=== PATIENT | female | born 1935 | race Caucasian/White ===

== ENCOUNTER 2016-12-15 10:15 | Inpatient (IN) | payer MEDICARE ==
[~2016-12-15] VITALS: Ht 167.6 cm; Wt 74.8 kg
[2016-12-15 10:31] LABS: GLUCOSE,POINT OF CARE 129 MG/DL (70-110)
[2016-12-15] MEDS ORDERED: DIABETES MED PO (10:31)
[2016-12-15] MEDS ORDERED: HTN MED PO (10:31)
[2016-12-15 11:01] LABS: BASOPHILS % (AUTO) 0.6 % (0.0-2.0); HEMATOCRIT 39.4 % (36-46); HEMOGLOBIN 12.6 g/dL (12.0-16.0); LYMPHOCYTES # (AUTO) 1.8 K/uL (1.0-4.8); LYMPHOCYTES % (AUTO) 21.6 % (22.0-44.0); MEAN CORPUSCULAR HEMOGLOBIN 26.6 pg (26.0-34.0); MEAN CORPUSCULAR HGB CONC 32.1 G/dL (31.0-37.0); MEAN CORPUSCULAR VOLUME 83 fL (80-100); MONOCYTES # (AUTO) 0.7 K/uL (0.1-1.0); MONOCYTES % (AUTO) 8.7 % (2.0-9.0); NEUTROPHILS # (AUTO) 5.3 K/uL (1.8-7.7); NEUTROPHILS % (AUTO) 65.1 % (40.0-70.0); PLATELET COUNT (AUTO) 196 K/uL (150-450); RED BLOOD CELL COUNT(AUTO) 4.75 MIL/uL (4.00-5.20); RED CELL DISTRIBUTION WIDTH 16.9 % (11.5-14.5); WHITE BLOOD COUNT (AUTO) 8.2 K/uL (4.5-11.0)
[2016-12-15 11:08] LABS: ANION GAP 10 mmol/L (8-16); CALCIUM, TOTAL 10.6 mg/dL (8.8-10.5); CARBON DIOXIDE 28 mmol/L (22-29); CHLORIDE 108 mmol/L (98-107); CREATININE 0.83 mg/dL (0.60-1.30); GLOMERULAR FILTR. RATE CALC > 60 mL/min (>60); POTASSIUM 4.2 mmol/L (3.5-5.1); SODIUM SERUM 146 mmol/L (136-145); UREA NITROGEN, BLOOD 15 mg/dL (7-18)
[2016-12-15 11:10] LABS: PROTHROMBIN TIME 10.7 SEC (9.4-11.6)
[2016-12-15 11:15] LABS: ALANINE AMINOTRANSFERASE 46 U/L (12-78); ALBUMIN 3.6 g/dL (3.4-5.0); ASPARTATE AMINOTRANSFERASE 28 U/L (15-37); BILIRUBIN,TOTAL 0.6 mg/dL (0.1-1.0); CREATINE KINASE, TOTAL 49 U/L (26-192); TOTAL PROTEIN, SERUM 7.2 g/dL (6.4-8.2)
[2016-12-15 11:16] LABS: AMMONIA 21 umol/L (11-32); TROPONIN I < 0.02 ng/mL (0.00-0.05)
[2016-12-15 12:13] LABS: APPEARANCE,URINE CLOUDY (CLEAR); GLUCOSE, URINE (UA) NEGATIVE (NEGATIVE); KETONES,URINE NEGATIVE (NEGATIVE); LEUKOCYTE ESTERASE ,URINE NEGATIVE (NEGATIVE); OCCULT BLOOD,URINE NEGATIVE (NEGATIVE); PH,URINE 5.5 (5.0-8.0); PROTEIN,URINE POS 1+ (NEGATIVE)
[2016-12-15 12:14] LABS: ADD UA MICROSCOPIC YES
[2016-12-15 12:20] LABS: RBC,URINE None Seen /HPF (0-2); SQUAMOUS EPITHELIAL CELL,UR Few /LPF (None Seen)
[2016-12-15] MEDS ORDERED: ONDANSETRON HCL 4 MG/2 ML VIAL IVP PRN (15:15)
[2016-12-15] MEDS ORDERED: ACETAMINOPHEN 325 MG TABLET PO PRN (15:15)
[2016-12-15] MEDS ORDERED: ZOLPIDEM TARTRATE 5 MG TABLET PO PRN (15:15)
[2016-12-15] MEDS ORDERED: SODIUM CHLORIDE 0.9% 1,000 ML IV ONE (16:15)
[2016-12-15] MEDS: HEPARIN SODIUM,PORCINE 5,000 UNITS/ML VIAL SQ SCH (16:34)
[2016-12-15] MEDS ORDERED: DEXTROSE 50%-WATER 25 GM/50 ML SYRINGE IVP PRN (16:45)
[2016-12-15] MEDS ORDERED: METOPROLOL TARTRATE 50 MG TABLET PO ONE (16:45)
[2016-12-15] MEDS: POTASSIUM CHL 20 MEQ/0.45% NS 1,000 ML IV SCH (17:06)
[2016-12-15 17:16] LABS: GLUCOSE,POINT OF CARE 140 MG/DL (70-110)
[2016-12-15 18:53] VITALS: BP 136/66
[2016-12-16] VITALS (7 sets, daily range): BP systolic 119–188; BP diastolic 69–107
[2016-12-16] MEDS: HEPARIN SODIUM,PORCINE 5,000 UNITS/ML VIAL SQ SCH ×4 (00:51→22:52)
[2016-12-16 02:01] LABS: GLUCOSE,POINT OF CARE 129 MG/DL (70-110)
[2016-12-16 06:16] LABS: GLUCOSE,POINT OF CARE 132 MG/DL (70-110)
[2016-12-16 08:30] LABS: BASOPHILS % (AUTO) 0.5 % (0.0-2.0); EOSINOPHILS % (AUTO) 4.6 % (1.0-6.0); HEMATOCRIT 39.1 % (36-46); HEMOGLOBIN 12.3 g/dL (12.0-16.0); LYMPHOCYTES # (AUTO) 1.8 K/uL (1.0-4.8); LYMPHOCYTES % (AUTO) 28.8 % (22.0-44.0); MEAN CORPUSCULAR HEMOGLOBIN 26.4 pg (26.0-34.0); MEAN CORPUSCULAR HGB CONC 31.4 G/dL (31.0-37.0); MEAN CORPUSCULAR VOLUME 84 fL (80-100); MONOCYTES # (AUTO) 0.5 K/uL (0.1-1.0); MONOCYTES % (AUTO) 8.6 % (2.0-9.0); NEUTROPHILS # (AUTO) 3.6 K/uL (1.8-7.7); NEUTROPHILS % (AUTO) 57.5 % (40.0-70.0); PLATELET COUNT (AUTO) 206 K/uL (150-450); RED BLOOD CELL COUNT(AUTO) 4.65 MIL/uL (4.00-5.20); RED CELL DISTRIBUTION WIDTH 17.5 % (11.5-14.5); WHITE BLOOD COUNT (AUTO) 6.2 K/uL (4.5-11.0)
[2016-12-16] MEDS: METOPROLOL TARTRATE 25 MG TABLET PO SCH ×2 (08:38→19:56)
[2016-12-16] MEDS: PANTOPRAZOLE SODIUM 40 MG DR TABLET PO SCH (08:38)
[2016-12-16] MEDS: POTASSIUM CHL 20 MEQ/0.45% NS 1,000 ML IV SCH ×2 (08:39→19:53)
[2016-12-16 08:41] LABS: HEMOGLOBIN A1C 6.6 % (4.5-6.2)
[2016-12-16 08:50] LABS: ALANINE AMINOTRANSFERASE 44 U/L (12-78); ALBUMIN 3.5 g/dL (3.4-5.0); ANION GAP 8 mmol/L (8-16); ASPARTATE AMINOTRANSFERASE 27 U/L (15-37); BILIRUBIN,TOTAL 0.6 mg/dL (0.1-1.0); CALCIUM, TOTAL 10.8 mg/dL (8.8-10.5); CARBON DIOXIDE 28 mmol/L (22-29); CHLORIDE 107 mmol/L (98-107); CHOL/HDL RATIO 2.3 (3.9-5.7); CREATININE 0.69 mg/dL (0.60-1.30); GLOMERULAR FILTR. RATE CALC > 60 mL/min (>60); SODIUM SERUM 143 mmol/L (136-145); THYROID STIMULATING HORMONE 1.98 uIU/mL (0.36-3.74); TOTAL PROTEIN, SERUM 6.9 g/dL (6.4-8.2); UREA NITROGEN, BLOOD 12 mg/dL (7-18)
[2016-12-16] MEDS: INSULIN ASPART 100 UNITS/ML SQ PRN ×3 (11:49→21:05)
[2016-12-16 12:46] LABS: RBC MORPHOLOGY COMMENT ABNORMAL RBC MORPH
[2016-12-16 17:16] LABS: GLUCOSE,POINT OF CARE 161 MG/DL (70-110)
[2016-12-16 17:16] LABS: GLUCOSE,POINT OF CARE 171 MG/DL (70-110)
[2016-12-16 21:31] LABS: GLUCOSE COMMENT 1 Received Meds; GLUCOSE,POINT OF CARE 185 MG/DL (70-110)
[2016-12-16] MEDS: OxyCODONE HCL/ACETAMINOPHEN 5-325 MG TABLET PO PRN (22:52)
[2016-12-17 04:36] VITALS: BP 166/79
[2016-12-17] MEDS: INSULIN ASPART 100 UNITS/ML SQ PRN ×4 (05:14→20:11)
[2016-12-17 05:40] LABS: GLUCOSE COMMENT 1 Received Meds; GLUCOSE,POINT OF CARE 157 MG/DL (70-110)
[2016-12-17] MEDS: DULoxetine HCL 20 MG CAPSULE PO SCH (08:20)
[2016-12-17] MEDS: PANTOPRAZOLE SODIUM 40 MG DR TABLET PO SCH (08:20)
[2016-12-17] MEDS: HEPARIN SODIUM,PORCINE 5,000 UNITS/ML VIAL SQ SCH ×3 (08:20→23:23)
[2016-12-17] MEDS: METOPROLOL TARTRATE 25 MG TABLET PO SCH ×2 (08:21→19:36)
[2016-12-17] MEDS: POTASSIUM CHL 20 MEQ/0.45% NS 1,000 ML IV SCH ×2 (08:27→19:35)
[2016-12-17] MEDS: OxyCODONE HCL/ACETAMINOPHEN 5-325 MG TABLET PO PRN ×2 (08:38→13:08)
[2016-12-17 11:22] VITALS: BP 190/91
[2016-12-17 11:57] LABS: GLUCOSE,POINT OF CARE 203 MG/DL (70-110)
[2016-12-17] MEDS: CloNIDine HCL 0.1 MG TABLET PO PRN ×2 (13:00→17:40)
[2016-12-17] MEDS: ALPRAZolam 0.5 MG TABLET PO SCH ×2 (14:11→19:37)
[2016-12-17 14:19] VITALS: BP 167/93
[2016-12-17 15:51] VITALS: BP 184/109
[2016-12-17 18:09] VITALS: BP 161/82
[2016-12-17 18:11] LABS: GLUCOSE COMMENT 1 Received Meds; GLUCOSE,POINT OF CARE 183 MG/DL (70-110)
[2016-12-17 19:23] VITALS: BP 153/77
[2016-12-17 21:31] LABS: GLUCOSE COMMENT 1 Received Meds; GLUCOSE,POINT OF CARE 165 MG/DL (70-110)
[2016-12-18] VITALS: BP 150/67
[2016-12-18 04:23] VITALS: BP 135/75
[2016-12-18] MEDS: INSULIN ASPART 100 UNITS/ML SQ PRN ×2 (05:20→11:29)
[2016-12-18 08:36] VITALS: BP 162/79
[2016-12-18] MEDS: DULoxetine HCL 20 MG CAPSULE PO SCH (08:36)
[2016-12-18] MEDS: HEPARIN SODIUM,PORCINE 5,000 UNITS/ML VIAL SQ SCH (08:36)
[2016-12-18] MEDS: PANTOPRAZOLE SODIUM 40 MG DR TABLET PO SCH (08:36)
[2016-12-18] MEDS: ALPRAZolam 0.5 MG TABLET PO SCH (08:36)
[2016-12-18] MEDS: METOPROLOL TARTRATE 25 MG TABLET PO SCH (08:37)
[2016-12-18] MEDS: POTASSIUM CHL 20 MEQ/0.45% NS 1,000 ML IV SCH (08:37)
[2016-12-18 10:37] VITALS: BP 171/88
[2016-12-18 11:27] LABS: GLUCOSE,POINT OF CARE 181 MG/DL (70-110)
[2016-12-18 11:27] LABS: GLUCOSE COMMENT 1 Received Meds; GLUCOSE,POINT OF CARE 155 MG/DL (70-110)
[2016-12-18 15:25] VITALS: BP 152/78
== END 2016-12-18 18:03 | disposition home or self-care (01) | DRG 641 ==
LOC: EEVIPCON 10:18 → EMS 10:18 → 6N 17:48
PROVIDERS: ADMIT Hospitalist; ATTEND Hospitalist
DX: E86.0 Dehydration (principal); F33.2 Major depressive disorder, recurrent severe without psychotic features; E87.0 Hyperosmolality and hypernatremia; R53.1 Weakness; R62.7 Adult failure to thrive; E11.9 Type 2 diabetes mellitus without complications; I10 Essential (primary) hypertension; R00.0 Tachycardia, unspecified; E87.1 Hypo-osmolality and hyponatremia; Z96.659 Presence of unspecified artificial knee joint; Z98.890 Other specified postprocedural states; Z86.73 Personal history of transient ischemic attack (TIA), and cerebral infarction without residual deficits
CPT/HCPCS: 51702; 70450; 82306; 82962; 83036; 84443; 87040; 93005; 96360; 96361; 99285; J1644; J2405; J3480; J7030